=== PATIENT | female | born 1990 | race Caucasian/White ===

== ENCOUNTER 2016-06-03 20:54 | Emergency (ER) | payer MEDICAID ==
[~2016-06-03] VITALS: Ht 170.2 cm; Wt 98.2 kg
[~2016-06-03 20:54] MED LIST: PRENATAL VITAMIN
[2016-06-03 20:58] VITALS: BP 125/81
[2016-06-03] MEDS ORDERED: SODIUM CHLORIDE 0.9% 1,000ML IVBOLUS ONE (22:00)
[2016-06-03] MEDS ORDERED: SODIUM CHLORIDE FLUSH 10ML SYR IVF ONE (22:00)
[2016-06-03 22:52] LABS: HEMOGLOBIN 12.7 g/dL (11.7-16.4)
[2016-06-03 23:05] LABS: BLOOD UREA NITROGEN 9 mg/dL (7-18)
== END 2016-06-03 23:34 | disposition home or self-care (01) ==
LOC: ED 23:33
DX: O20.0 Threatened abortion (principal); Z3A.15 15 weeks gestation of pregnancy
CPT/HCPCS: 36415; 76805; 80048; 82040; 84702; 85025; 86901

== ENCOUNTER 2016-11-12 21:51 | Observation (INO) | payer MEDICAID ==
[~2016-11-12] VITALS: Ht 165.1 cm; Wt 106.0 kg
[2016-11-12 22:25] VITALS: BP 147/68
[2016-11-12 22:48] LABS: HEMATOCRIT 38.5 % (34.6-47.8); HEMOGLOBIN 12.9 g/dL (11.7-16.4); WHITE BLOOD COUNT 9.7 x10^3/uL (3.4-10)
[2016-11-12 22:57] LABS: BLOOD UREA NITROGEN 8 mg/dL (7-18)
[2016-11-12 23:00] LABS: ASPARTATE AMINO TRANSFERASE 14 U/L (15-37)
== END 2016-11-13 02:00 | disposition home or self-care (01) ==
LOC: LDOP 21:51 → LDIP 23:34
PROVIDERS: ADMIT Obstetrics & Gynecology; ATTEND Obstetrics & Gynecology
DX: O9A.213 Injury, poisoning and certain other consequences of external causes complicating pregnancy, third trimester (principal); S39.91XA Unspecified injury of abdomen, initial encounter; W01.0XXA Fall on same level from slipping, tripping and stumbling without subsequent striking against object, initial encounter; Y93.89 Activity, other specified; Y92.89 Other specified places as the place of occurrence of the external cause; Y99.8 Other external cause status; Z3A.38 38 weeks gestation of pregnancy
CPT/HCPCS: 36415; 59025; 80053; 85025; 85384; 85460; 99201; G0378; G0463

== ENCOUNTER 2016-11-22 09:59 | Inpatient (IN) | payer OTHER, MEDICAID ==
[~2016-11-22] VITALS: Ht 165.1 cm; Wt 109.1 kg
[2016-11-22 10:35] VITALS: BP 122/69
[2016-11-22] MEDS ORDERED: PREN1TAB60 PO (10:35)
[2016-11-22] MEDS ORDERED: NEWBORN KIT ONE ×2 (11:31→13:01)
[2016-11-22] MEDS ORDERED: OXYTOCIN 30U/ 0.9% NaCL 500ML 500 ML IV ONE (11:58)
[2016-11-22] MEDS ORDERED: D5%-LACTATED RINGERS 1,000 ML IV SCH (11:58)
[2016-11-22] MEDS ORDERED: FENTANYL PF 100 MCG/2ML IV PRN (12:00)
[2016-11-22] MEDS ORDERED: FENTANYL PF 100 MCG/2ML IVPush PRN (12:00)
[2016-11-22] MEDS ORDERED: LIDOCAINE 1%, 20ML ONE (12:02)
[2016-11-22] MEDS ORDERED: MISOPROSTOL 200 MCG TABLET ONE (12:02)
[2016-11-22] MEDS ORDERED: OXYTOCIN 30U/ 0.9% NaCL 500ML 500 ML ONE ×2 (12:03→21:36)
[2016-11-22] MEDS: LACTATED RINGERS 1,000 ML IV SCH ×2 (12:38→17:57)
[2016-11-22 12:46] LABS: HEMATOCRIT 40.3 % (34.6-47.8); HEMOGLOBIN 13.8 g/dL (11.7-16.4); WHITE BLOOD COUNT 13.2 x10^3/uL (3.4-10)
[2016-11-22] MEDS ORDERED: IBUPROFEN 600 MG TABLET ONE (21:16)
[2016-11-22] MEDS ORDERED: MISOPROSTOL 200 MCG TABLET SL PRN (21:30)
[2016-11-22] MEDS ORDERED: ONDANSETRON 2MG/ML, 2ML IV PRN (21:30)
[2016-11-22] MEDS: IBUPROFEN 600 MG TABLET PO PRN (21:39)
[2016-11-22] MEDS: OXYTOCIN 30U/ 0.9% NaCL 500ML 500 ML IV SCH (21:39)
[2016-11-22 22:45] VITALS: BP 118/68
[2016-11-23 02:40] VITALS: BP 111/72
[2016-11-23 05:15] LABS: HEMATOCRIT 35.8 % (34.6-47.8); HEMOGLOBIN 12.1 g/dL (11.7-16.4); WHITE BLOOD COUNT 19.2 x10^3/uL (3.4-10)
[2016-11-23] MEDS: OXYTOCIN 30U/ 0.9% NaCL 500ML 500 ML IV SCH ×2 (07:18→17:18)
[2016-11-23] MEDS ORDERED: PRENATAL VIT/IRON/FA 1 EACH TABLET ONE (07:39)
[2016-11-23] MEDS: IBUPROFEN 600 MG TABLET PO PRN ×2 (07:40→14:10)
[2016-11-23] MEDS: PRENATAL VIT/IRON/FA 1 EACH TABLET PO SCH (07:40)
[2016-11-23 08:00] VITALS: BP 113/62
[2016-11-23] MEDS: OXYcodone/APAP 5/325MG TABLET PO PRN ×2 (12:08→19:25)
[2016-11-23 14:44] VITALS: BP 134/75
[2016-11-23] MEDS: DOCUSATE 100 MG CAPSULE PO PRN (19:25)
[2016-11-23 19:40] VITALS: BP 114/79
[2016-11-24] MEDS: IBUPROFEN 600 MG TABLET PO PRN ×3 (00:35→16:22)
[2016-11-24] MEDS: OXYcodone/APAP 5/325MG TABLET PO PRN ×4 (00:35→16:21)
[2016-11-24] MEDS: OXYTOCIN 30U/ 0.9% NaCL 500ML 500 ML IV SCH ×2 (03:18→13:18)
[2016-11-24 09:00] VITALS: BP 109/68
[2016-11-24] MEDS: DOCUSATE 100 MG CAPSULE PO PRN (09:15)
[2016-11-24] MEDS: PRENATAL VIT/IRON/FA 1 EACH TABLET PO SCH (09:15)
[2016-11-24] MEDS ORDERED: IBUP-1222 PO (15:32)
[2016-11-24] MEDS ORDERED: DOCU-131 PO (15:33)
[2016-11-24] MEDS ORDERED: OXYC-302 PO (15:33)
== END 2016-11-24 16:44 | disposition home or self-care (01) | DRG 775 ==
LOC: LDOP 09:59 → LDIP 11:58 → 2NW 22:31
PROVIDERS: ADMIT Obstetrics & Gynecology; ATTEND Obstetrics & Gynecology
PROC: 10E0XZZ Delivery of Products of Conception, External Approach (ICD-10-PCS; principal; 2016-11-22)
PROC: 0HQ9XZZ Repair Perineum Skin, External Approach (ICD-10-PCS; 2016-11-22)
DX: O70.0 First degree perineal laceration during delivery (principal); Z68.41 Body mass index [BMI] 40.0-44.9, adult; O99.214 Obesity complicating childbirth; E66.9 Obesity, unspecified; Z83.3 Family history of diabetes mellitus; Z37.0 Single live birth; Z3A.39 39 weeks gestation of pregnancy
CPT/HCPCS: 36415; 76815; 85025; 86850; 86900; J2590; J7120; J7121

== ENCOUNTER 2016-12-03 01:41 | Emergency (ER) | payer OTHER, MEDICAID ==
[~2016-12-03] VITALS: Ht 165.1 cm; Wt 100.2 kg
[~2016-12-03 01:41] MED LIST changes: +DOCU-131 PO; +IBUP-1222 PO; +OXYC-302 PO; +PREN1TAB60 PO
[2016-12-03 01:43] VITALS: BP 148/83
== END 2016-12-03 03:02 | disposition home or self-care (01) ==
LOC: ED 02:56
DX: B02.9 Zoster without complications (principal)
CPT/HCPCS: 99283